=== PATIENT | male | born 1950 | race Caucasian/White ===

== ENCOUNTER 2019-09-18 13:35 | Observation (INO) ==
[2019-09-18 13:58] LABS: iSTAT Creatinine 1.1 mg/dl (0.6-1.3); iSTAT Hemoglobin 16.3 g/dl (14.0-18.0); iSTAT Ionized Calcium 1.26 mmol/l (1.12-1.32); iSTAT Potassium 4.5 mmol/L (3.3-5.0)
[2019-09-18 14:04] LABS: Basophils # (auto) 0.04 K/uL (0-0.2); Basophils % (auto) 0.5 %; Eosinophils # (auto) 0.14 K/uL (0-0.5); Eosinophils % (auto) 1.8 %; Hematocrit (blood only) 45.8 % (42-52); Hemoglobin 15.7 g/dL (14.0-18.0); Immature Granulocytes # (auto) 0.02 K/uL (0.00-0.02); Immature Granulocytes % (auto) 0.3 %; Lymphocytes # (auto) 1.65 K/uL (1.2-3.4); Lymphocytes % (auto) 21.1 %; Mean Corpuscular Hgb Conc 34.3 g/dL (32-36); Mean Corpuscular Volume 93.3 fL (80-100); Mean Platelet Volume 9.8 fL (7.4-10.4); Monocytes # (auto) 0.35 K/uL (0.11-0.59); Monocytes % (auto) 4.5 %; Neutrophils # (auto) 5.61 K/uL (1.4-6.5); Neutrophils % (auto) 71.8 %; Platelet Count 195 K/uL (130-400); RDW Coefficient of Variation 15.4 % (11.5-14.5); Red Blood Count 4.91 M/uL (4.7-6.1); White Blood Count 7.81 K/uL (4.8-10.8)
[2019-09-18 14:09] LABS: Partial Thromboplastin Time 26.8 Seconds (21.0-31.0); Prothrombin Time 10.4 Seconds (9.0-12.0)
[2019-09-18] MEDS ORDERED: OPTIRAY 320 125ml IV ONE (14:10)
--- NOTE | 2019-09-18 14:12 | Emergency Department Note ---
Impression & Plan TIA (transient ischemic attack) ED Provider Note NAME: LIZ JENKINS AGE: 69 SEX: M : 1950 ARRIVES VIA: [employer] INFORMANT: Patient, ED PROVIDER(S): Juanito Ruggiero DO CHIEF COMPLAINT: Difficulty speaking HPI: The patient is a 69-year-old male [facility]. The patient was having difficulty speaking. He was having work done in his house by the [employer] contractor who found the patient having difficulty speaking. The patient himself states that he noticed that around noon today he started having difficulty using his hands. He does not remember specifically which hand was not working well but he was sitting down at his computer trying to type when he noticed he was having difficulty typing on a keyboard. He was trying to speak to the atm technician with the [employer] and was having difficulty forming words. At that time 911 was called. Because of the [facility]'s [facility] was scheduled to go to a stroke center immediately. While on route the patient's reevaluation showed significant improvement of his symptoms and by the time he arrived at our facility we received pre-notification that the patient was coming but he was asymptomatic at that time. The patient denies having any nausea or vomiting. He denies having any frequent falls. He does not have any medical history and takes no medications chronically. The patient states that he has had some family history of heart disease. The patient states he has been having headaches almost every week for about a year but does not currently have a headache. He denies having any chest pain or difficulty breathing. He denies having palpitations. ROS: See above HPI for pertinent positives & negatives. A total of 10 systems reviewed and were otherwise negative. PAST MEDICAL HISTORY: See Below PAST SURGICAL HISTORY: See Below FAMILY HISTORY: See Below SOCIAL HISTORY: See Below HOME MEDICATIONS: See Below ALLERGIES: See Below VITALS: See Below PHYSICAL EXAMINATION: GENERAL: Patient is awake alert in no acute distress patient is resting comfortably and showing no signs of anxiety EYES: The conjunctivae are clear. The pupils are round and reactive. EARS, NOSE, MOUTH AND THROAT: The nose is without any evidence of any deformity. NECK: The neck is nontender and supple. There is no carotid bruit noted to auscultation but there is a small soft tissue mass overlying the left lateral neck soft tissue. It is not tender or erythematous. RESPIRATORY: Normal respiratory effort is noted there is no evidence of wheezing rhonchi or rales CARDIOVASCULAR: Regular rate and rhythm noted there no murmurs rubs or gallops normal S1 normal S2. GASTROINTESTINAL: The abdomen is soft. Abdomen is nontender. MUSCULOSKELETAL/EXTREMITIES: There is no evidence of gross deformity full range of motion is noted in the hips and shoulders. SKIN: There is no obvious evidence of any rash. There are no petechiae, pallor or cyanosis noted. NEUROLOGIC: Patient is awake alert and oriented x3 strength is symmetric patellar reflexes are 2+ bilaterally MEDICAL DECISION MAKING: The patient is a 69-year-old male who presented to the emergency department for acute strokelike symptoms. The patient had acute strokelike symptoms at his home which were noted very acutely. For this reason he was felt to be a candidate for transfer to a primary stroke center. He was transported to our facility via [facility]. On route the patient's symptoms completely resolved. As he arrived at our facility he was found to be without any neurologic deficit. The patient did have very significant symptoms so I did feel that this was a very significant TIA and he was high risk for recurrence. I discussed the patient's laboratory and radiographic studies with him. Because of the high risk TIA I discussed his case with the on-call [facility] hospitalist group. They have agreed to evaluate the patient in the emergency department for further management and disposition. He was reevaluated multiple times. He was treated with aspirin. His neurologic exam remained intact. Triage Nursing notes reviewed. Prior medical records reviewed Vital Signs: reviewed and remarkable for elevated blood pressure. Differential diagnosis: Infection, dehydration, metabolic abnormality, hypo/hyperglycemia, electrolyte disturbance, anemia, hypoxia, cardiac sources, intracerebral event, toxicologic, neurologic, as well as other pathologies. ER treatment provided: See below Diagnostics interpreted by me: ECG: EKG was obtained in the emergency department. My interpretation is normal sinus rhythm at 73 bpm. There was no ectopy. There is no acute ST segment abnormalities noted. There is no previous EKG for comparison. Cardiac Monitoring: An order was placed for continuous cardiac monitoring. The monitor shows a rate of 80 with sinus rhythm. Laboratory studies: As stated above and show below. Imaging studies: See below Consultation(s): I discussed this case with the on-call [facility] hospitalist. They have agreed to evaluate the patient in the emergency department for further management and disposition. Past Med/Surg History Surgical History (Updated 09/18/19 @ 16:43 by Parviz Hendricks) History of inguinal hernia repair History of vasectomy S/P tonsillectomy Family History (Updated 09/18/19 @ 16:43 by Parviz Hendricks) Father Coronary heart disease Grandfather (Paternal) Coronary heart disease Uncle Coronary heart disease Uncle Coronary heart disease Social History (Updated 09/18/19 @ 16:44 by Parviz Hendricks) Smoking Status: Former smoker Years Smoked: 5; Hx Alcohol Use: Yes Alcohol type: beer Alcohol Intake Frequency: 4 or More x per/Week Hx Substance Use: No Preferred Language: Chadian Communication Ability: Effective Beliefs That Will Affect Care: None marital status: Current Living Situation: Alone Current Living Situation Comment: lives alone in [facility] current occupational status: retired 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[employer]; now does [employer]; writes for [employer] How many Children do You have: 2 Other Information That Helps Us Care for You: No Feels Safe at Home: Yes Allergies Allergies Allergy/AdvReac Type Severity Reaction Status Date / Time No Known Allergies Allergy Unverified 09/18/19 13:52 Home Meds Home Medications Medication Instructions Recorded Confirmed No Known Home Medications 09/18/19 09/18/19 Results & Data (ED) Vital Signs Vital Signs - 24 hr 09/18/19 13:45 09/18/19 14:20 09/18/19 14:42 Temperature 37.1 C Temperature Source Oral Pulse Rate 68 67 73 Pulse Rate from SpO2 Sensor 67 72 Respiratory Rate 20 16 14 Blood Pressure 167/92 H 152/96 H 137/86 Blood Pressure Mean 117 114 91 Blood Pressure Position Sitting Pulse Oximetry 95 98 95 Sepsis Recent Fever Within 48 Hours No Sepsis New/Unexplained Change in Mental Status No Sepsis Action Taken by Nursing No Action Required 09/18/19 15:00 09/18/19 15:11 09/18/19 15:18 Temperature Temperature Source Pulse Rate 64 62 57 L Pulse Rate from SpO2 Sensor 63 64 Respiratory Rate 20 17 Blood Pressure 161/84 H Blood Pressure Mean 103 Blood Pressure Position Pulse Oximetry 94 94 Sepsis Recent Fever Within 48 Hours Sepsis New/Unexplained Change in Mental Status Sepsis Action Taken by Nursing 09/18/19 15:20 09/18/19 15:30 09/18/19 15:40 Temperature Temperature Source Pulse Rate 60 58 L 58 L Pulse Rate from SpO2 Sensor Respiratory Rate 13 15 16 Blood Pressure 114/92 Blood Pressure Mean 98 Blood Pressure Position Pulse Oximetry Sepsis Recent Fever Within 48 Hours Sepsis New/Unexplained Change in Mental Status Sepsis Action Taken by Nursing 09/18/19 15:51 09/18/19 16:00 09/18/19 16:02 Temperature Temperature Source Pulse Rate 59 L 58 L 58 L Pulse Rate from SpO2 Sensor Respiratory Rate 19 15 18 Blood Pressure Blood Pressure Mean Blood Pressure Position Pulse Oximetry Sepsis Recent Fever Within 48 Hours Sepsis New/Unexplained Change in Mental Status Sepsis Action Taken by Nursing 09/18/19 16:10 09/18/19 16:21 09/18/19 16:30 Temperature Temperature Source Pulse Rate 58 L 58 L 57 L Pulse Rate from SpO2 Sensor Respiratory Rate 16 21 14 Blood Pressure 167/94 H Blood Pressure Mean 119 Blood Pressure Position Pulse Oximetry Sepsis Recent Fever Within 48 Hours Sepsis New/Unexplained Change in Mental Status Sepsis Action Taken by [facility] Medications Current Medication List: was personally reviewed by me Laboratory Data Attestation: I reviewed the patient's lab results. Result diagrams: 09/18/19 13:40 09/18/19 13:40 Lab Results 09/18/19 09/18/19 09/18/19 Range/Units 13:40 13:40 13:40 WBC 7.81 (4.8-10.8) K/uL RBC 4.91 (4.7-6.1) M/uL Hgb 15.7 (14.0-18.0) g/dL POC Hgb (14.0-18.0) g/dl Hct 45.8 (42-52) % POC Hct (42-52) % MCV 93.3 (80-100) fL MCH 32.0 (25-34) pg MCHC 34.3 (32-36) g/dL RDW Std Deviation 53.0 H (36.4-46.3) fL RDW Coeff of Lazaro 15.4 H (11.5-14.5) % Plt Count 195 (130-400) K/uL MPV 9.8 (7.4-10.4) fL Immature Gran % (Auto) 0.3 % Neut % (Auto) 71.8 % Lymph % (Auto) 21.1 % [place] % (Auto) 4.5 % Eos % (Auto) 1.8 % Baso % (Auto) 0.5 % Neut # (Auto) 5.61 (1.4-6.5) K/uL Lymph # (Auto) 1.65 (1.2-3.4) K/uL [place] # (Auto) 0.35 (0.11-0.59) K/uL Eos # (Auto) 0.14 (0-0.5) K/uL Baso # (Auto) 0.04 (0-0.2) K/uL Immature Gran # (Auto) 0.02 (0.00-0.02) K/uL PT 10.4 (9.0-12.0) Seconds INR 1.0 (0.9-1.1) APTT 26.8 (21.0-31.0) Seconds PTT Ratio 1.0 POC Sodium (135-144) mmol/L Sodium 140 (136-145) mmol/L POC Potassium (3.3-5.0) mmol/L Potassium 4.4 (3.5-5.1) mmol/L POC Chloride (101-112) mmol/L Chloride 110 H (98-107) mmol/L Carbon Dioxide 23 (21-32) mmol/L POC Total CO2 (24-31) mmol/L Anion Gap 7.0 (3-11) POC Anion Gap (16-25) mmol/L POC BUN (7-18) mg/dl BUN 24 H (7-18) mg/dl Creatinine 1.24 (0.6-1.4) mg/dl POC Creatinine (0.6-1.3) mg/dl Est Cr Clr Drug Dosing 60.0 ml/min Est GFR ( Amer) 67.4 Est GFR (Non-Af Amer) 58.1 BUN/Creatinine Ratio 19.5 (10-20) Glucose 94 (70-99) mg/dl POC Glucose (other) (70-99) mg/dl Calcium 10.1 (8.5-10.1) mg/dl POC Ioniz Calcium Guerrero (1.12-1.32) mmol/l Magnesium 2.3 (1.8-2.4) mg/dl Total Bilirubin 0.8 (0.2-1) mg/dl AST 17 (15-37) U/L ALT 26 (12-78) U/L Alkaline Phosphatase 63 (45-117) U/L Troponin I < 0.015 (0-0.045) ng/ml Total Protein 7.7 (6.4-8.2) gm/dl Albumin 4.1 (3.4-5.0) gm/dl Globulin 3.6 (2.5-4.0) gm/dl Albumin/Globulin Ratio 1.2 (0.9-2) 09/18/19 Range/Units 13:46 WBC (4.8-10.8) K/uL RBC (4.7-6.1) M/uL Hgb (14.0-18.0) g/dL POC Hgb 16.3 (14.0-18.0) g/dl Hct (42-52) % POC Hct 48 (42-52) % MCV (80-100) fL MCH (25-34) pg MCHC (32-36) g/dL RDW Std Deviation (36.4-46.3) fL RDW Coeff of Lazaro (11.5-14.5) % Plt Count (130-400) K/uL MPV (7.4-10.4) fL Immature Gran % (Auto) % Neut % (Auto) % Lymph % (Auto) % [place] % (Auto) % Eos % (Auto) % Baso % (Auto) % Neut # (Auto) (1.4-6.5) K/uL Lymph # (Auto) (1.2-3.4) K/uL [place] # (Auto) (0.11-0.59) K/uL Eos # (Auto) (0-0.5) K/uL Baso # (Auto) (0-0.2) K/uL Immature Gran # (Auto) (0.00-0.02) K/uL PT (9.0-12.0) Seconds INR (0.9-1.1) APTT (21.0-31.0) Seconds PTT Ratio POC Sodium 141 (135-144) mmol/L Sodium (136-145) mmol/L POC Potassium 4.5 (3.3-5.0) mmol/L Potassium (3.5-5.1) mmol/L POC Chloride 108 (101-112) mmol/L Chloride (98-107) mmol/L Carbon Dioxide (21-32) mmol/L POC Total CO2 21 L (24-31) mmol/L Anion Gap (3-11) POC Anion Gap 17.0 (16-25) mmol/L POC BUN 25 H (7-18) mg/dl BUN (7-18) mg/dl Creatinine (0.6-1.4) mg/dl POC Creatinine 1.1 (0.6-1.3) mg/dl Est Cr Clr Drug Dosing ml/min Est GFR ( Amer) Est GFR (Non-Af Amer) BUN/Creatinine Ratio (10-20) Glucose (70-99) mg/dl POC Glucose (other) 98 (70-99) mg/dl Calcium (8.5-10.1) mg/dl POC Ioniz Calcium [place]ro 1.26 (1.12-1.32) mmol/l Magnesium (1.8-2.4) mg/dl Total Bilirubin (0.2-1) mg/dl AST (15-37) U/L ALT (12-78) U/L Alkaline Phosphatase (45-117) U/L Troponin I (0-0.045) ng/ml Total Protein (6.4-8.2) gm/dl Albumin (3.4-5.0) gm/dl Globulin (2.5-4.0) gm/dl Albumin/Globulin Ratio (0.9-2) Administered Medications Sodium Chloride (Nss 1000ml) 1,000 mls @ 100 mls/hr IV .Q10H [facility] Stop: 09/19/19 04:14 Last Admin: 09/18/19 19:27 Dose: 100 mls/hr Documented by: [id number] Discontinued Medications Aspirin (Aspirin Chew 324 Mg) 324 mg PO NOW STA Stop: 09/18/19 15:13 Last Admin: 09/18/19 15:43 Dose: 324 mg Documented by: [id number] Gadobutrol (Gadobutrol 65ml Vial) 7.7 ml IV ONCE ONE Stop: 09/18/19 20:47 Last Admin: 09/18/19 20:47 Dose: 7.7 ml Documented by: [id number] Ioversol (Optiray 320 125ml) 120 ml IV ONCE ONE Stop: 09/18/19 14:11 Last Admin: 09/18/19 14:10 Dose: 120 ml Documented by: [id number] Imaging Data Radiologist's Impression: CT angio neck with con HISTORY: Mental status change Stroke evaluation TECHNIQUE: Multiaxial CT angiography of the neck was performed IV contrast: 120 cc All measurements were calculated based on NASCET criteria. Maximum intensity projection images were also obtained. A dose lowering technique was utilized adhering to the principles of ALARA. COMPARISON STUDY: None. FINDINGS: The aortic arch and proximal great vessels are widely patent. There is no significant stenosis, occlusion, or dissection identified within the bilateral common carotid, internal carotid, or vertebral arteries. IMPRESSION: No significant stenosis, occlusion, or dissection identified within the carotid or vertebral arteries. ACT 112: Negative or not required by law. The above report was generated using voice recognition software. It may contain grammatical, syntax or spelling errors. Electronically signed by: Delvin Chaparro M.D. 09/18/2019 2:24 PM Dictated: 09/18/191420 Transcribed: 09/18/191420 CT angio head w con HISTORY: Mental status change Stroke evaluation TECHNIQUE: Multiaxial CT angiography of the head was performed IV contrast: 120 cc Maximum intensity projection images were also obtained. A dose lowering technique was utilized adhering to the principles of ALARA. COMPARISON: None. FINDINGS: There is no mass, hematoma, midline shift, or acute infarct. Visualized intracranial internal carotid arteries, distal vertebral arteries, and basilar artery are widely patent. There is no significant stenosis, occlusion, or aneurysm seen within the bilateral ACAs, MCAs, or combiner. IMPRESSION: No significant stenosis, occlusion, or aneurysm within the [place]. ACT 112: Negative or not required by law. The above report was generated using voice recognition software. It may contain grammatical, syntax or spelling errors. Electronically signed by: Delvin Chaparro M.D. 09/18/2019 2:28 PM Dictated: 09/18/191424 Transcribed: 09/18/191424 HEAD CT NONCONTRAST CT DOSE: HISTORY: Stroke evaluation TECHNIQUE: Multiaxial CT images of the head were performed without the use of intravenous contrast. Automated exposure control was utilized for this study. A dose lowering technique was utilized adhering to the principles of ALARA. Comparison: None. Findings: Mild mucosal thickening within the ethmoid air cells. The mastoid air cells are clear. Multiple calcified scalp nodules suggestive of sebaceous cysts. The largest within the right high convexity measures 3.3 cm. The calvarium and skull base are intact. There is no mass, hematoma, midline shift, acute infarct. White matter hypodensity is nonspecific but suggestive of microvascular ischemic change. The ventricles and sulci demonstrate mild age-related involutional changes. Old lacunar infarcts within the bilateral external capsules. Impression: No acute intracranial abnormality. ACT 112: Negative or not required by law. Electronically signed by: Brodie Shipman M.D. 09/18/2019 2:26 PM Dictated: 09/18/19 1422 Transcribed: 09/18/19 1422 XR chest 1V portable HISTORY: Weakness. COMPARISON: None. FINDINGS: A few left basilar linear densities consistent with subsegmental atelectasis are scarring. The lungs are otherwise clear. No pleural effusions. No pneumothorax. The heart is normal in size. IMPRESSION: No acute process. ACT 112: Negative or not required by law. Electronically signed by: Brodie Shipman M.D. 09/18/2019 2:40 PM Dictated: 09/18/19 1439 Transcribed: 09/18/19 1439 Blood Pressure Blood Pressure Findings: Elevated blood pressure Blood Pressure Disposition: further management by hospitalist Discharge Plan Visit Data Chief Complaint: Stroke/CVA Symptoms ED Provider: Juanito Ruggiero Discharge Problem: TIA (transient ischemic attack) Patient Disposition: Admitted As Inpatient Condition: Good Discharge Instructions Interventions: ED Discharge Assessment Last Done: 09/18/19 17:29
[2019-09-18 14:21] LABS: Albumin Level 4.1 gm/dl (3.4-5.0); Aspartate Aminotransferase 17 U/L (15-37); BUN Creatinine Ratio 19.5 (10-20); Blood Urea Nitrogen 24 mg/dl (7-18); Calcium 10.1 mg/dl (8.5-10.1); Carbon Dioxide 23 mmol/L (21-32); Chloride 110 mmol/L (98-107); Est GFR (African American) 67.4; Est GFR (Non-African American) 58.1; Glucose 94 mg/dl (70-99); Magnesium 2.3 mg/dl (1.8-2.4); Potassium 4.4 mmol/L (3.5-5.1); Sodium 140 mmol/L (136-145)
--- NOTE | 2019-09-18 14:25 | CT Scan Report ---
CT angio neck with con HISTORY: Mental status change Stroke evaluation TECHNIQUE: Multiaxial CT angiography of the neck was performed IV contrast: 120 cc All measurements were calculated based on NASCET criteria. Maximum intensity projection images were also obtained. A dose lowering technique was utilized adhering to the principles of ALARA. COMPARISON STUDY: None. FINDINGS: The aortic arch and proximal great vessels are widely patent. There is no significant sten osis, occlusion, or dissection identified within the bilateral common carotid, internal carotid, or v ertebral arteries. IMPRESSION: No significant stenosis, occlusion, or dissection identified within the carotid or vertebral arteries . ACT 112: Negative or not required by law. The above report was generated using voice recognition software. It may contain grammatical, syntax or spelling errors. Electronically signed by: Delvin Chaparro M.D. 09/18/2019 2:24 PM
--- NOTE | 2019-09-18 14:28 | CT Scan Report ---
HEAD CT NONCONTRAST CT DOSE: HISTORY: Stroke evaluation TECHNIQUE: Multiaxial CT images of the head were performed without the use of intravenous contrast. A utomated exposure control was utilized for this study. A dose lowering technique was utilized adheri ng to the principles of ALARA. Comparison: None. Findings: Mild mucosal thickening within the ethmoid air cells. The mastoid air cells are clear. Mult iple calcified scalp nodules suggestive of sebaceous cysts. The largest within the right high convexi ty measures 3.3 cm. The calvarium and skull base are intact. There is no mass, hematoma, midline shif t, acute infarct. White matter hypodensity is nonspecific but suggestive of microvascular ischemic ch melissa. The ventricles and sulci demonstrate mild age-related involutional changes. Old lacunar infarct s within the bilateral external capsules. Impression: No acute intracranial abnormality. ACT 112: Negative or not required by law. Electronically signed by: Brodie Shipman M.D. 09/18/2019 2:26 PM
--- NOTE | 2019-09-18 14:29 | CT Scan Report ---
CT angio head w con HISTORY: Mental status change Stroke evaluation TECHNIQUE: Multiaxial CT angiography of the head was performed IV contrast: 120 cc Maximum intensi ty projection images were also obtained. A dose lowering technique was utilized adhering to the prin ciples of RAMON. COMPARISON: None. FINDINGS: There is no mass, hematoma, midline shift, or acute infarct. Visualized intracranial director internal control al carotid arteries, distal vertebral arteries, and basilar artery are widely patent. There is no sig nificant stenosis, occlusion, or aneurysm seen within the bilateral ACAs, MCAs, or racing board marker. IMPRESSION: No significant stenosis, occlusion, or aneurysm within the [place] of [place]. ACT 112: Negative or not required by law. The above report was generated using voice recognition software. It may contain grammatical, syntax or spelling errors. Electronically signed by: Delvin Chaparro M.D. 09/18/2019 2:28 PM
[2019-09-18 14:32] LABS: Alanine Aminotransferase 26 U/L (12-78); Albumin Globulin Ratio 1.2 (0.9-2); Alkaline Phosphatase 63 U/L (45-117); Bilirubin,Total 0.8 mg/dl (0.2-1); Globulin 3.6 gm/dl (2.5-4.0); Total Protein 7.7 gm/dl (6.4-8.2); Troponin I < 0.015 ng/ml (0-0.045)
--- NOTE | 2019-09-18 14:41 | XRay Report ---
XR chest 1V portable HISTORY: Weakness. COMPARISON: None. FINDINGS: A few left basilar linear densities consistent with subsegmental atelectasis are scarring. The lungs are otherwise clear. No pleural effusions. No pneumothorax. The heart is normal in size. IMPRESSION: No acute process. ACT 112: Negative or not required by law. Electronically signed by: Brodie Shipman M.D. 09/18/2019 2:40 PM
[2019-09-18] MEDS ORDERED: ASPIRIN CHEW 324 MG PO STA (15:12)
--- NOTE | 2019-09-18 15:40 | History & Physical Report ---
Date of Service September 18, 2019 Assessment & Plan (1) TIA (transient ischemic attack): Presentation most c/w TIA. Thus far no obvious risk factors for such. CTA head/neck normal. CT head with possible old lacunes; obtaining MRI brain to r/o new stroke but also to see if CT head findings are real. Continue aspirin for secondary TIA/CVA prevention. Check echo w/ bubble study - r/o thrombus, PFO, etc. Telemetry - r/o PAF. Lipids, TSH, HbA1C in am. PT, OT, speech evals. [facility] Neuro consult as well. If additional work-up as above is negative consider 30-day event monitor to r/o PAF. (2) Chronic headache: Present for 1 year. Posterior neck/occipital in location. MRI brain -- r/o intracranial pathology as cause. Check sed rate/crp to r/o temporal arteritis but highly unlikely. If MRI brain is negative -- 2nd to cervical spine DJD?? (3) Elevated blood pressure reading without diagnosis of hypertension: BPs consistently high since presentation. Follow for now. If BPs remain high consider BP meds in light of suspected TIA. (4) DVT prophylaxis: heparin SC place on observation status for now will need to secure him a PCP at discharge for ongoing routine care History of Present Illness Chief Complaint: expressive speech difficulties, clumbsiness of hands Primary Care Provider: NO PCP 69yo male with no significant PMH who presented [facility] as a stroke alert. Patient has been in his usual state of health - quite active on daily basis with rigorous outdoor physical activity - until today when he developed acute expressive speech difficulties. This morning the [employer] crew came to his house and during the time they were there the crew noted that his speech was not normal. The patient himself states that he "knew what he wanted to say but the words wouldn't come out." He sat down at his computer and began to type an email to his daughter explaining that he was having these symptoms and noted that he couldn't get his fingers to manipulate the keys. He denies that he had actual weakness of any limb, however. Denies any vertigo, change in vision or hearing, difficulty swallowing, or paresthesias. 911 was called, and he was ambulanced to an open field where a helicopter picked him up and brought him to [facility]. Upon arrival his symptoms were fully resolved. Symptoms lasted about 30 minutes in total. For the last year he has had headaches about once weekly. Start in posterior neck/occiput and move to the vertex of his skull. No phonophobia, photophobia, eye tearing, nasal discharge, nausea, emesis, scomata, or neurological symptoms. Laying down makes them worse; sitting or standing makes them better. They are usually in the evening and they occasionally wake him from sleep. They are usually resolved by the morning. Alleve helps. Allergies Allergy/AdvReac Type Severity Reaction Status Date / Time No Known Allergies Allergy Unverified 09/18/19 13:52 Home Medications Home Medications Medication Instructions Recorded Confirmed Type No Known Home Medications 09/18/19 09/18/19 History Past Med/Surg History Medical History (Updated 09/18/19 @ 22:30 by Parviz Hendricks) Chronic headache Surgical History (Updated 09/18/19 @ 16:43 by Parviz Hendricks) History of inguinal hernia repair History of vasectomy S/P tonsillectomy Family History (Updated 09/18/19 @ 16:43 by Parviz Hendricks) Father Coronary heart disease Grandfather (Paternal) Coronary heart disease Uncle Coronary heart disease Uncle Coronary heart disease Social History (Updated 09/18/19 @ 16:44 by Parviz Hendricks) Smoking Status: Former smoker Years Smoked: 5; Hx Alcohol Use: Yes Alcohol type: beer Alcohol Intake Frequency: 4 or More x per/Week Hx Substance Use: No Preferred Language: Italian Communication Ability: Effective Beliefs That Will Affect Care: None marital status: Current Living Situation: Alone Current Living Situation Comment: lives alone in [facility] current occupational status: retired 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[employer]; now does [employer]; 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[employer] How many Children do You have: 2 Other Information That Helps Us Care for You: No Feels Safe at Home: Yes Review of Systems Constitutional: no fever, no chills, no fatigue, no anorexia, no weight loss and no weight gain Eyes: no worsening vision Ear, Nose, Mouth, Throat: no nasal congestion, no nasal discharge, no sore throat and no dysphagia Respiratory: no cough, no dyspnea and no dyspnea on exertion Cardiovascular: no chest pain, no orthopnea, no paroxysmal nocturnal dyspnea, no palpitations and no edema Gastrointestinal: no abdominal pain, no nausea, no vomiting, no constipation, no diarrhea/loose stools and no blood in stools Genitourinary: no dysuria Musculoskeletal: + neck pain; no back pain and no joint pain Integumentary: no rash Neurologic: as per Subjective / HPI; no gait abnormality, no localized weakness, no paralysis and no loss of sensation Psychiatric: no depression Endocrine: no cold intolerance and no heat intolerance Hematologic / Lymphatic: no easy bleeding, no easy bruising, no night sweats and no unexplained weight loss Allergy / Immunological: no seasonal rhinorrhea Physical Exam Constitutional: no acute distress, + not average body habitus and no altered mental status Eyes: + anicteric sclerae, PERRL and EOM intact bilaterally ENMT: external ear and nose normal, oropharynx normal Ears: no TM abnormality Neck: trachea midline and + anterior neck swelling (left - lipoma suspected ) Thyroid: normal thyroid Respiratory: normal respiratory effort, lungs clear to auscultation no respiratory distress Cardiovascular: Rate/Rhythm: regular rate and regular rhythm Heart Sounds: normal S1 and normal S2; no murmur Vessels: posterior tibial pulses present and dorsalis pedis pulses present; no JVD Extremities: no edema Gastrointestinal (Abdomen): normal bowel sounds, soft, nontender, no hepatosplenomegaly Musculoskeletal: no cyanosis or clubbing, extremities motor strength 5/5 Skin: no rashes, warm and dry scalp - large cyst over vertex of skull Neurologic: patellar DTR's 2+ bilat, sensation intact and PERRL, EOMI, accommodation nl, no face palsy, no dysarthria moves all extremities; no focal motor deficits Speech / Cognition: normal speech Motor/Sensory: no tremor and no pronator drift Cranial Nerves: tongue midline, normal hearing and no nystagmus Gait: no ataxic gait Coordination: normal jiifjy-cw-lhas test Psychiatric: A+Ox3, euthymic affect Lymphatic: no cervical lymphadenopathy Results & Data Results & Data ([facility]) Vital Signs (Past 12 Hours) Vital Signs Temp Pulse Resp BP Pulse Ox 09/18/19 14:42 73 14 137/86 95 09/18/19 14:20 67 16 152/96 H 98 09/18/19 13:45 37.1 C 68 20 167/92 H 95 Laboratory Results Laboratory Results - last 24 hr 08/12/20 08/12/20 08/12/20 13:40 13:40 13:40 WBC 7.81 RBC 4.91 Hgb 15.7 POC Hgb Hct 45.8 POC Hct MCV 93.3 MCH 32.0 MCHC 34.3 RDW Std Deviation 53.0 H RDW Coeff of Lazaro 15.4 H Plt Count 195 MPV 9.8 Immature Gran % (Auto) 0.3 Neut % (Auto) 71.8 Lymph % (Auto) 21.1 Marquette % (Auto) 4.5 Eos % (Auto) 1.8 Baso % (Auto) 0.5 Neut # (Auto) 5.61 Lymph # (Auto) 1.65 [place]quette # (Auto) 0.35 Eos # (Auto) 0.14 Baso # (Auto) 0.04 Immature Gran # (Auto) 0.02 PT 10.4 INR 1.0 APTT 26.8 PTT Ratio 1.0 POC Sodium Sodium 140 POC Potassium Potassium 4.4 POC Chloride Chloride 110 H Carbon Dioxide 23 POC Total CO2 Anion Gap 7.0 POC Anion Gap POC BUN BUN 24 H Creatinine 1.24 POC Creatinine Est Cr Clr Drug Dosing 60.0 Est GFR ( Amer) 67.4 Est GFR (Non-Af Amer) 58.1 BUN/Creatinine Ratio 19.5 Glucose 94 POC Glucose (other) Calcium 10.1 POC Ioniz Calcium Guerrero Magnesium 2.3 Total Bilirubin 0.8 AST 17 ALT 26 Alkaline Phosphatase 63 Troponin I < 0.015 Total Protein 7.7 Albumin 4.1 Globulin 3.6 Albumin/Globulin Ratio 1.2 09/18/19 13:46 WBC RBC Hgb POC Hgb 16.3 Hct POC Hct 48 MCV MCH MCHC RDW Std Deviation RDW Coeff of Lazaro Plt Count MPV Immature Gran % (Auto) Neut % (Auto) Lymph % (Auto) Marquette % (Auto) Eos % (Auto) Baso % (Auto) Neut # (Auto) Lymph # (Auto) Marquette # (Auto) Eos # (Auto) Baso # (Auto) Immature Gran # (Auto) PT INR APTT PTT Ratio POC Sodium 141 Sodium POC Potassium 4.5 Potassium POC Chloride 108 Chloride Carbon Dioxide POC Total CO2 21 L Anion Gap POC Anion Gap 17.0 POC BUN 25 H BUN Creatinine POC Creatinine 1.1 Est Cr Clr Drug Dosing Est GFR ( Amer) Est GFR (Non-Af Amer) BUN/Creatinine Ratio Glucose POC Glucose (other) 98 Calcium POC Ioniz Calcium Guerrero 1.26 Magnesium Total Bilirubin AST ALT Alkaline Phosphatase Troponin I Total Protein Albumin Globulin Albumin/Globulin Ratio Diagnostic Findings 1. CT head - b/l old lacunes; no acute CVA or ICH. 2. CTA neck - no stenosis or dissection or aneurysm. 3. CTA head - no stenosis or aneurysm. 4. CXR - no infiltrates. 5. EKG - my reading - NSR, no ST changes. Code Status & VTE Plan Code Status full VTE Prophylaxis Plan VTE Prophylaxis will be ordered: Yes PG Care Time/CCT Total # of Minutes Spent Total Time Spent with Patient: Total time spent is greater than 50% in coordination of care (as documented) at patient's floor/unit and/or counseling patient: Coding Level of Care Code 99092 OBS Care - Level 2 Diagnoses TIA (transient ischemic attack) G45.9 Chronic headache R51 Headache type: unspecified Elevated blood pressure reading without diagnosis of hypertension R03.0 DVT prophylaxis Z29.9 (1) Chronic headache Headache type: unspecified
[2019-09-18] MEDS ORDERED: SODIUM CHLORIDE 0.9% 1000ML 1,000 ML IV SCH (18:15)
[2019-09-18] MEDS ORDERED: ALUMINUM/MAGNESIUM SUSP 30 ML UDC PO PRN (18:15)
[2019-09-18] MEDS ORDERED: ACETAMINOPHEN 325 MG TAB PO PRN (18:15)
[2019-09-18] MEDS ORDERED: NITROGLYCERIN SL 0.4 MG/TAB TAB SL PRN (18:15)
[2019-09-18] MEDS ORDERED: ONDANSETRON INJ 2 MG/ML 2 ML VIAL IV PRN (18:15)
[2019-09-18] MEDS ORDERED: GADOBUTROL 65ML VIAL IV ONE (20:46)
--- NOTE | 2019-09-18 21:17 | Magnetic Resonance Report ---
MR brain wo/w con HISTORY: 69 years-old Male TIA; large cyst occiput acute strokelike symptoms COMPARISON: Head CT and CTA head neck of same day TECHNIQUE: Multiplanar multisequence MRI the brain was obtained both with and without the use of 7.7 mL Gadavist FINDINGS: Edge In[employer] Heels localizer images demonstrate no gross extracranial abnormality.There is no restricted diffusion to suggest acute or subacute infarct. The corpus callosum, brainstem, optic chiasm, pituitary and pi maria victoria glands appear unremarkable on the sagittal T1 series. No cerebellar tonsillar herniation. Mild p atchy T2/FLAIR hyperintensities about the white matter suggest probable chronic microvascular ischemi c disease. Prominent perivascular spaces are noted diffusely throughout the bilateral cerebral hemisp heres. No acute intracranial hemorrhage, midline shift, abnormal extra axial collection, hydrocephalu s or intracranial mass. Major vascular flow voids appear patent. Trace left mastoid effusion. Mild mu cosal thickening of the paranasal sinuses. The orbits and skull are unremarkable. Multiple calcified scalp lesion suggestive of sebaceous cysts redemonstrated measuring up to 3.3 cm. No abnormal intra-a xial or extra-axial enhancement. IMPRESSION: 1. No acute intracranial abnormality, specifically there is no acute or subacute infarct. 2. No abnormal enhancement. ACT 112: Negative or not required by law. The above report was generated using voice recognition software. It may contain grammatical, syntax o r spelling errors. Electronically signed by: Jimenez Carvajal M.D. 09/18/2019 9:16 PM
--- NOTE | 2019-09-19 06:33 | Electrocardiogram Report ---
Test Reason : Blood Pressure : / mmHG Vent. Rate : 073 BPM Atrial Rate : 073 BPM P-R Int : 158 ms QRS Dur : 092 ms QT Int : 400 ms P-R-T Axes : 050 -43 047 degrees QTc Int : 440 ms Normal sinus rhythm Left axis deviation Incomplete right bundle branch block Abnormal ECG No previous ECGs available Confirmed by Vik West ([id number]) on 09/19/2019 6:33:13 AM Referred By: ED Confirmed By:Vik West
[2019-09-19] MEDS: HEPARIN SOD 5,000 UNIT/0.5 ML VIAL SQ SCH ×2 (06:35→15:12)
[2019-09-19 06:59] LABS: C Reactive Protein < 0.29 mg/dl (0-0.29); Chol HDL Ratio 4; Cholesterol 177 mg/dl (0-200); HDL Cholesterol 40 mg/dl; LDL Cholesterol Calculated 124 mg/dl; Triglycerides 64 mg/dl (0-150); VLDL Cholesterol 13 mg/dl
[2019-09-19 07:53] LABS: Estimated Average Glucose 94 mg/dl; Hemoglobin A1C 4.9 % (4.5-5.6)
[2019-09-19] MEDS ORDERED: ASPIRIN 81 MG ECTAB PO SCH (09:00)
--- NOTE | 2019-09-19 09:42 | Neurology Consultation ---
Date of Consultation September 19, 2019 Assessment & Plan (1) TIA (transient ischemic attack): This patient's presenting symptoms are most consistent with a TIA localizing to the left cerebral hemisphere/left MCA territory. He had presented with an isolated expressive aphasia, without obvious hemiparesis, lasting for about 30 minutes. He does not have a history of prior clinical strokes or TIA although does have evidence of chronic cerebrovascular disease on imaging. He is also hypertensive which may be a longstanding, unrecognized problem. He does not have a primary care physician. He is a former smoker although quit many years ago. He does not have diabetes mellitus or other known cardiovascular risk factors. I agree with starting daily low-dose aspirin for secondary stroke risk reduction in this patient. Patient's hypertension will likely need long-term management as well. Would recommend starting an antihypertensive prior to discharge with instructions to establish with a PCP for ongoing monitoring. Would try to get patient's systolic blood pressure closer to 140 mmHg acutely with further adjustments to be made in the outpatient setting. Follow-up with results of echocardiogram Consider obtaining a 30-day cardiac event monitor as an outpatient as well. Of note, this patient has a soft, mobile mass along the left anterior aspect of his neck which may need further evaluation as well. History of Present Illness Reason for Consultation: TIA Requesting Physician: Parviz Hendricks MD Attending Physician: Vaughn Allen History of Present Illness The patient is a 69-year-old right-handed male with a chief complaint of word finding difficulty that began acutely around noon yesterday afternoon. He reports that he was having considerable difficulty finding words while typing on his computer keyboard at that time. Many of the written words were nonsensical. He also had considerable difficulty speaking with a [facility] network repair man at that time. The patient indicates that he could understand perfectly what was being said to him but he was completely unable to produce words that made sense. He was very frustrated by this symptom. He further indicates that he did not have any obvious weakness of the arms, legs or hands. He was able to feed his dog and walk without difficulty during the episode. The patient indicates that his symptoms resolved in about 30 minutes, prior to his assessment in our emergency department. He does admit to having more frequent headaches over the past few months and had wondered if his blood pressure have been running too high. He does not have a family physician. He does not take any prescription medications. He does not have a history of migraine. Currently, the patient indicates that he feels fine and continues to report resolution of yesterday's symptoms. Further, he denies headache, vision disturbance, vertigo, dizziness, or focal weakness at this time. He has been ambulating freely in his hospital room without difficulty. He denies a prior history of stroke or TIA. No evidence of acute or subacute stroke on recently completed MRI. Imaging described in further detail below. Allergies Allergy/AdvReac Type Severity Reaction Status Date / Time No Known Allergies Allergy Unverified 09/18/19 13:52 Home Medications Home Medications Medication Instructions Recorded Confirmed Type No Known Home Medications 09/18/19 09/18/19 History Patient History Medical History Chronic headache Surgical History History of inguinal hernia repair History of vasectomy S/P tonsillectomy Family History Father Coronary heart disease Grandfather (Paternal) Coronary heart disease Uncle Coronary heart disease Uncle Coronary heart disease Social History Smoking Status: Former smoker Years Smoked: 5; Hx Alcohol Use: Yes Alcohol type: beer Alcohol Intake Frequency: 4 or More x per/Week Hx Substance Use: No Preferred Language: Bahraini Communication Ability: Effective Beliefs That Will Affect Care: None marital status: Current Living Situation: Alone Current Living Situation Comment: lives alone in 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[employer] How many Children do You have: 2 Other Information That Helps Us Care for You: No Feels Safe at Home: Yes Review of Systems Constitutional: no fever and no chills Eyes: no blind spots and no diplopia Ear, Nose, Mouth, Throat: + hearing loss Respiratory: no cough and no dyspnea Cardiovascular: no chest pain and no palpitations Gastrointestinal: no nausea and no vomiting Genitourinary: no urinary incontinence Musculoskeletal: no myalgia Integumentary: no rash and no lesions Neurologic: as per Subjective / HPI and + abnormal speech; no gait abnormality, no localized weakness, no loss of sensation, no syncope and no headache(s) Psychiatric: no depression and no anxiety Hematologic / Lymphatic: no easy bleeding and no easy bruising Exam (Neuro) Constitutional: well developed and well nourished; no acute distress Eyes: normal visual mcmahon by confrontation, PERRL, normal accommodation and EOM intact bilaterally; no fundoscopic abnormality, no nystagmus and no papilledema Neck: There is a soft mobile mass along the left anterior aspect of the neck. Cardiovascular: Vessels: normal carotid upstroke; no carotid bruit Neurologic: Oriented to:: Person, Place and Time Memory: Short Term Intact and Remote Intact Attention: Span Intact and Concentration Intact Language: Naming Objects and Repeating Phrases Speech Fluency: negative Dysarthria Speech Aphasia: negative Aphasia Fund of Knowledge: Current Events, Past History and Vocabulary Cranial Nerves: Normal II (Visual mcmahon full to confrontation, visual acuity normal), III, IV, (Pupils equal round reactive to light and accommodation, eye movements normal), V (Facial sensation intact), VII (There is no facial droop or weakness), VIII (Hearing intact), IX, X (Palate elevates to midline), XI (Shoulder shrug intact) and XII (Tongue protrudes to midline) Motor Strength: Normal Lower Extremities and Normal Upper Extremities; negative Pronator Drift Motor Tone: Normal Lower Extremities and Normal Upper Extremities Muscle Bulk/Involuntary Movements: No Involuntary Movements; negative Muscle Atrophy Sensation: Light Touch Intact, Pain/Temperature Intact, Vibration Intact and Proprioception Intact Coordination: Normal; negative Limited Balance, Dysdiadochokinesia, Finger-Nose Abnormal and Heel-Clemens Abnormal Deep Tendon Reflexes: Rt Triceps: 2+, Lt Triceps: 2+, Rt Biceps: 2+, Lt Biceps: 2+, Rt Brachioradialis: 2+, Lt Brachioradialis: 2+, Rt Patellar: 2+, Lt Patellar: 2+, Rt Ankle: 2+ and Lt Ankle: 2+ Special Tests: negative Babinski Present Gait: Normal Station and Gait Results & Data ([facility]) Vital Signs (Past 12 Hours) Vital Signs Temp Pulse Pulse Resp BP Pulse Ox 09/19/19 07:16 36.8 C 52 L 16 165/89 H 97 09/19/19 06:54 52 L 09/19/19 03:17 54 L 09/19/19 02:59 36.5 C 52 L 15 141/78 H 96 09/18/19 23:26 36.4 C L 51 L 19 170/83 H 97 09/18/19 22:52 55 L Laboratory Results WBC 7.81, hemoglobin 15.7, hematocrit 45.8, platelet count 195, ESR 7, sodium 141, potassium 4.5, BUN 25, creatinine 1.1, glucose 98, hemoglobin A1c 4.9, triglycerides 64, cholesterol 177, LDL 124, VLDL 13, HDL 40, TSH 2.[address] of the head negative for hemorrhage or acute process. There is evidence of chronic microvascular ischemic disease as well as multiple old bilateral lacunar infarcts within the external capsules. CT angiography of the head and neck unremarkable. MRI of the brain negative for acute or subacute infarct. There is patchy chronic microvascular ischemic disease throughout both cerebral hemispheres. Coding Level of Care Code 74130 Initial In Care Lvl 3 Diagnoses TIA (transient ischemic attack) G45.9
[2019-09-19] MEDS ORDERED: lisinopriL 5 MG TAB PO ONE (11:03)
[2019-09-19 11:12] VITALS: TEMP 97.7; O2SAT 96
--- NOTE | 2019-09-19 11:13 | Medical Student Progress Note ---
Date of Service September 19, 2019 Assessment & Plan (1) DVT prophylaxis: Continue heparin subq (2) Chronic headache: -No evidence of intracranial mass lesion or acute changes on brain MRI - RAO most likely be secondary to uncontrolled HTN - Neuro was consulted and they agree that this patients RAO are most likely related to his uncontrolled HTN and that managing BP could help bring this under control. Headache type: unspecified (3) Elevated blood pressure reading without diagnosis of hypertension: - Patients BP readings have been in the 150's-160's during hospital stay -Patient could have long standing HTN as he does not have a PC and has not seen a doctor in many years and does. - Start lisinopril 5 mg and have patient FU with primary care provider. - Patient encouraged to buy home BP cuff and take BP readings at home. (4) TIA (transient ischemic attack): - patient presented with expressive asphasia and non obvious hemiparesis which localized to a left MCA ischemic event. Symptoms resolved within 30 minutes. PAtient may have long standing HTN as there is evidence of vascular disease on CTA and he has not seen a PC in many years. He also has a remote hx of smoking with 5 pack years as he quit many years ago. -MRI and Ct showed no evidence of acute changes that would indicate a CVA. - Discharge patient with 5 mg lisinopril with goal of keeping BP lower than 140. -Start aspirin 81mg QAM - Start atorvastatin 40 mg QAM - F/U with cardiology as to the results of the echocardiogram. -F/U with neurology - F/U with a PC to help manage HTN. Admission and Anticipated Discharge Date Admission Date: September 18, 2019 Supervising Attestation This is a medical student note. Subjective 69 year old male on day one of hospital admission presented to the ED yesterday after a 30 min episode of expressive asphasia and weakness in his hands. He first noticed these symptoms when he attempted to have a conversation with the TV dish repair workers at his house. He states that the words that he wanted to say were garbled and he was not able to express what he was thinking. He attempted to type out what he wanted to say and he was unable to type due to hand weakness. He was then flown from his house to [facility]. He said during the flight his symptoms went away. He has a 1 year hx of chronic RAO. He has these RAO's about once a week. They start in his neck and that radiate to his entire head. The RAO are dull in nature and are worsened when he lays down. These RAO dissipate after taking Aleve or drinking coffee. RAO's will some times wake him from sleeping. He has not noticed any increase in severity or frequency over the last year. Today he is feeling well and is looking forward to going home. He has no concer ns at this present time. He has no RAO, confusion, vision changes, asphasia, facial weakness or numbness, extremity weakness of numbness dysphagia, dizziness, chest pain or SOB. Review of Systems Review of Systems: All systems reviewed & are unremarkable except as noted in HPI & below Physical Exam Eyes: PERRL, conjunctivae normal, anicteric sclerae Neck: + anterior neck swelling ( stable,non tender left sided anterior neck mass about 4 cm in diameter. ) Respiratory: normal respiratory effort, lungs clear to auscultation Cardiovascular: RRR, no murmur, no edema Heart Sounds: normal S1 and normal S2 Palpation: normal PMI Musculoskeletal: no cyanosis or clubbing, extremities motor strength 5/5 Skin: + subcutaneous nodules (occipital area of head has 5 cm nodule msot liekly a cycst. ) Neurologic: patellar DTR's 2+ bilat, sensation intact and PERRL, EOMI, accommodation nl, no face palsy, no dysarthria normal touch/pain/proprioception, CN's II-XI intact bilaterally and moves all extremities; not confused Results & Data ([facility]) Vital Signs (Past 12 Hours) Vital Signs Temp Pulse Pulse Resp BP Pulse Ox 09/19/19 07:16 36.8 C 52 L 16 165/89 H 97 09/19/19 06:54 52 L 09/19/19 03:17 54 L 09/19/19 02:59 36.5 C 52 L 15 141/78 H 96 09/18/19 23:26 36.4 C L 51 L 19 170/83 H 97
[2019-09-19] MEDS ORDERED: ATORVASTATIN 40 MG TAB PO SCH (15:00)
[2019-09-19] MEDS ORDERED: PHARMACIST DISCHARGE MED REC CONSULT PRN (15:03)
[2019-09-19] MEDS ORDERED: STROKE PATIENT DISCHARGE STA (15:31)
[2019-09-19 15:52] VITALS: BP 152/88; PULSE 60
--- NOTE | 2019-09-19 21:46 | XCELERA ---
[id number]
--- NOTE | 2019-09-26 07:34 | Discharge Summary ---
Date of Service September 19, 2019 Admission HPI Per Admitting Provider 69yo male with no significant PMH who presented from [facility]) via helicopter as a stroke alert. Patient has been in his usual state of health - quite active on daily basis with rigorous outdoor physical activity - until today when he developed acute expressive speech difficulties. This morning the [employer] crew came to his house and during the time they were there the crew noted that his speech was not normal. The patient himself states that he "knew what he wanted to say but the words wouldn't come out." He sat down at his computer and began to type an email to his daughter explaining that he was having these symptoms and noted that he couldn't get his fingers to manipulate the keys. He denies that he had actual weakness of any limb, however. Denies any vertigo, change in vision or hearing, difficulty swallowing, or paresthesias. 911 was called, and he was ambulanced to an open field where a helicopter picked him up and brought him to [facility]. Upon arrival his symptoms were fully resolved. Symptoms lasted about 30 minutes in total. For the last year he has had headaches about once weekly. Start in posterior neck/occiput and move to the vertex of his skull. No phonophobia, photophobia, eye tearing, nasal discharge, nausea, emesis, scomata, or neurological symptoms. Laying down makes them worse; sitting or standing makes them better. They are usually in the evening and they occasionally wake him from sleep. They are usually resolved by the morning. Krupa helps. Principal Diagnosis TIA Discharge Exam Constitutional: no acute distress, + not average body habitus and no altered mental status Eyes: + anicteric sclerae, PERRL and EOM intact bilaterally ENMT: external ear and nose normal, oropharynx normal Ears: no TM abnormality Neck: trachea midline and + anterior neck swelling (left - lipoma suspected ) Thyroid: normal thyroid Respiratory: normal respiratory effort, lungs clear to auscultation no respiratory distress Cardiovascular: Rate/Rhythm: regular rate and regular rhythm Heart Sounds: normal S1 and normal S2; no murmur Vessels: posterior tibial pulses present and dorsalis pedis pulses present; no JVD Extremities: no edema Gastrointestinal (Abdomen): normal bowel sounds, soft, nontender, no hepatosplenomegaly Musculoskeletal: no cyanosis or clubbing, extremities motor strength 5/5 Skin: no rashes, warm and dry scalp - large cyst over vertex of skull Neurologic: patellar DTR's 2+ bilat, sensation intact and PERRL, EOMI, accommodation nl, no face palsy, no dysarthria moves all extremities; no focal motor deficits Speech / Cognition: normal speech Motor/Sensory: no tremor and no pronator drift Cranial Nerves: tongue midline, normal hearing and no nystagmus Gait: no ataxic gait Coordination: normal ejigai-yi-eoem test Psychiatric: A+Ox3, euthymic affect Lymphatic: no cervical lymphadenopathy Discharge Data Allergies Allergy/AdvReac Type Severity Reaction Status Date / Time No Known Allergies Allergy Unverified 09/18/19 13:52 Consultations 09/18/19 15:12 ED Decision to Admit Stat 09/18/19 17:58 Consult Neurology Routine Ordered Studies 09/18/19 13:43 CT angio head w con Stat CT angio neck with con Stat CT head/brain wo con Stat 09/18/19 17:58 MR brain wo/w con Routine Hospital Course (1) TIA (transient ischemic attack): Appreciate input from Neurology. This patient's presenting symptoms are most consistent with a TIA localizing to the left cerebral hemisphere/left MCA territory. He had presented with an isolated expressive aphasia, without obvious hemiparesis, lasting for about 30 minutes. He does not have a history of prior clinical strokes or TIA although does have evidence of chronic cerebrovascular disease on imaging. He is also hypertensive which may be a longstanding, unrecognized problem. He does not have a primary care physician. He is a former smoker although quit many years ago. He does not have diabetes mellitus or other known cardiovascular risk factors. I agree with starting daily low-dose aspirin for secondary stroke risk reduction in this patient. Patient's hypertension will likely need long-term management as well. Would recommend starting an antihypertensive prior to discharge with instructions to establish with a PCP for ongoing monitoring. Would try to get patient's systolic blood pressure closer to 140 mmHg acutely with further adjustments to be made in the outpatient setting. Completed echocardiogram. Consider obtaining a 30-day cardiac event monitor as an outpatient as well; defer to PCP. Of note, this patient has a soft, mobile mass along the left anterior aspect of his neck which may need further evaluation as well; will defer to PCP as well. (2) DVT prophylaxis: heparin SC (3) Chronic headache: Present for 1 year. Posterior neck/occipital in location. Checked sed rate/crp to r/o temporal arteritis: both negative.. MRI findings. FINDINGS: Apparatus Cleaner localizer images demonstrate no gross extracranial abnormality.There is no restricted diffusion to suggest acute or subacute infarct. The corpus callosum, brainstem, optic chiasm, pituitary and pineal glands appear unremarkable on the sagittal T1 series. No cerebellar tonsillar herniation. Mild patchy T2/FLAIR hyperintensities about the white matter suggest probable chronic microvascular ischemic disease. Prominent perivascular spaces are noted diffusely throughout the bilateral cerebral hemispheres. No acute intracranial hemorrhage, midline shift, abnormal extra axial collection, hydrocephalus or intracranial mass. Major vascular flow voids appear patent. Trace left mastoid effusion. Mild mucosal thickening of the paranasal sinuses. The orbits and skull are unremarkable. Multiple calcified scalp lesion suggestive of sebaceous cysts redemonstrated measuring up to 3.3 cm. No abnormal intra-axial or extra-axial enhancement. IMPRESSION: 1. No acute intracranial abnormality, specifically there is no acute or subacute infarct. 2. No abnormal enhancement. (4) Elevated blood pressure reading without diagnosis of hypertension: Added lisinopril, may need to add more BP meds at followup appointment with Total Time Total Time Spent Total Time Spent (In Minutes): 32 Total Time Includes: Examination of the Patient, Discharge Planning and Medication Reconciliation Discharge Plan Discharge Items Patient Disposition: Home - Self-Care Reason For Visit: TIA Discharge Diagnosis: TIA Condition on Discharge: Good Activity: Resume your previous activity Non-emergency contact: Primary Care Provider Call non-emergency contact if: you have any medication questions Follow-up/Referrals: PCP,NO [Primary Care Provider] - Diet: Heart Healthy Addtl Attending Provider Instructions: PCP appointment attempt made with [facility], Drs. Dodge and Dr. Ramirez, ph: [phone]. Spoke with Aide at family medicine office. They will review for acceptance and call you with appt. If they are not able to accommodate you with appt. they will assist in making arrangements for another PCP. Attempted to make follow up for pt. with neurology office of Dr. Morillo ([phone]). Faxed information to office with your permission, they will call with an appt. Please call Lyubov in case management with any questions regarding these appts. at [phone]. Start medication Pending Studies at Discharge: No Stand-Alone Forms: Medications to Prevent Stroke, [facility] [employer], Smoking Cessation Medications and DC Order Prescriptions: New lisinopril 5 mg tablet 5 mg PO QPM Qty: 30 RF: 0 aspirin 81 mg tablet,delayed release (DR/EC) 81 mg PO DAILY Qty: 30 RF: 0 atorvastatin 40 mg tablet 40 mg PO PM Qty: 30 RF: 0 No Action No Known Home Medications RF: 0 Discharge Orders: Discharge Order (Routine); Ordered 09/19/19 Ordered By: Vaughn Allen Admission Data Admit Date/Time: 09/18/19 16:37 Attending Provider: Vaughn Allen Admit Provider: Parviz Hendricks Primary Care Provider: PCP,NO Other Providers: Marcelo Washington Other Interventions: Discharge Summary Assessment (RN) Last Done: 09/19/19 16:05 Coding Level of Care Code 81311 OBS Care - Discharge Diagnoses TIA (transient ischemic attack) G45.9 DVT prophylaxis Z29.9 Chronic headache R51 Headache type: unspecified Elevated blood pressure reading without diagnosis of hypertension R03.0 Time Spent (min) 35
== END 2019-09-19 16:31 | disposition home or self-care (01) ==
LOC: EDSEX → 2N 13:35 → ED 13:35 → SUATTDRO 16:37 → 2N 17:29